=== PATIENT | female | born 1960 | race Caucasian/White ===

== ENCOUNTER → 2018-03-07 | Day surgery (SDC) | payer OTHER ==
[2018-03-05 16:54] LABS: BASOPHILS # (AUTO) 0.1 (0.0-0.1); BASOPHILS % 0.8 % (0.0-1.0); EOSINOPHILS # (AUTO) 0.3 (0.0-0.4); EOSINOPHILS % 4.3 % (0.0-6.0); HEMATOCRIT 44.9 % (34.2-44.1); HEMOGLOBIN 15.5 g/dL (12.0-16.0); LYMPHOCYTES # (AUTO) 1.5 (1.0-3.2); MEAN CORPUSCULAR HEMOGLOBIN 32.8 pg (28-32); MEAN CORPUSCULAR HGB CONC 34.5 g/dL (31-35); MEAN CORPUSCULAR VOLUME 94.9 fL (81-99); MONOCYTES # (AUTO) 0.8 (0.2-0.8); MONOCYTES % 12.6 % (4.4-11.3); NEUTROPHILS # (AUTO) 3.4 (2.1-6.9); NEUTROPHILS % 57.1 % (38.7-80.0); PLATELET COUNT 240 x10e3/uL (140-360); RED BLOOD COUNT 4.73 x10e6/uL (3.6-5.1); RED CELL DISTRIBUTION WIDTH 11.9 % (11.7-14.4)
[~2018-03-07] MED LIST: ASPIR 8181 MG PO; AZITHROMYCIN250 MG PO; COREG3.125 MG PO; EPINEPHRINE HCL INJ 1 MG/ML AMP ONE; ETHAMBUTOL HCL400 MG PO; FENTANYL CITRATE/PF 100MCG/2 ML INJ ONE; GLYCOPYRROLATE INJ 1MG/ 5 ML SYR ONE; LIDOCAINE HCL 2% 30 ML TUBE ONE; LIDOCAINE HCL 2% LOCAL INJ 5 ML SDV VIAL INJ ONE; LIDOCAINE HCL 4% 50 ML BTL ONE; MIDAZOLAM HCL 2 MG/2 ML VIAL ONE; OXYMETAZOLINE HCL 0.05% NAS 1 SPRAY BTL ONE; PHENYLEPHRINE HCL 1% 10 MG/ML VIAL ONE; PROAIR HFA INH8.5 GM INH; PROPOFOL IV EMULSION 10 MG/ML 20 ML VIAL ONE; RIFAMPIN300 MG PO; SEVOFLURANE INHAL SOLN 250 ML PEN BTL ONE
--- OUTSIDE RECORDS SUMMARY | 2018-03-07 11:18 | XMS REPORT | Clinical Summary ---
Author Author [facility] Address Unknown Phone Unavailable Care Team Providers Care Charity Fundraiser Name Role Phone Asked, No Pcp PCP Unavailable Allergies No Known Allergies Current Medications No known medications Active Problems Problem Noted Date VT (ventricular tachycardia) (HCC) 04/17/2016 PVC (pulmonary venous congestion) 12/13/2015 Encounters Date Type Specialty Care Team Description 09/10/2017 [facility] Procedural Cardiology Jacinta Smith MD Severe mitral Encounter regurgitation 09/02/2017 Transcribe Procedural Cardiology Jacinta Smith MD Severe mitral Orders regurgitation (Primary Dx) after 03/06/2017 Family History Medical History Relation Name Comments Heart disease Father Alzheimer's disease Mother Relation Name Status Comments Father Mother Social History Tobacco Use Types Packs/Day Years Used Date Never Smoker Alcohol Use Drinks/Week oz/Week Comments Yes rare Sex Assigned at Date Recorded Not on file Last Filed Vital Signs Vital Sign Reading Time Taken Blood Pressure 108/59 09/10/2017 3:00 PM CDT Pulse 78 09/10/2017 2:55 PM CDT Temperature - - Respiratory Rate 18 09/10/2017 2:55 PM CDT Oxygen Saturation 100% 09/10/2017 2:55 PM CDT Inhaled Oxygen - - Concentration Weight - - Height - - Body Mass Index - - Plan of Treatment Health Maintenance Due Date Last Done Comments CERVICAL CANCER SCREENING 1979 BREAST CANCER SCREENING 2008 COLON CANCER SCREENING 2008 SHINGRIX VACCINE (#1) 2008 INFLUENZA VACCINE 12/04/2017 Procedures Procedure Name Priority Date/Time Associated Diagnosis Comments ECHOCARDIOGRAM Routine 09/10/2017 Severe mitral Results for this TRANSESOPHAGEAL 3:53 PM CDT regurgitation procedure are in the results section. after 03/06/2017 Results * Echocardiogram transesophageal (09/10/2017 3:53 PM) Narrative Performed At [facility] Transesophageal Echo Report [id number], [place] [address] Pat.Name:Jaquelin ZURITA.ID:[id number] .Date: 09/10/2017Refer.:JACINTA SMITH MD Exam Time: 2:06:00 PMStudy Type:SHERRON Height:66inWeight:134lb BSA: 1.69 m2 DOBAge:1960,57Y Sex: FEMALEBP:150/101 HR:88 bpmSonogrphr: Tomas Becerra MD Pat. Stat.:OutpatientStudy Status:Final Echo Event ID:[id number] Order ID:[id number] Procedures:Transesophageal Echo with Colorflow Doppler Race:C SUMMARY: LV EF is normal. Estimated EF is 60-64%. RV systolic function is normal. 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 The degree of MV prolapse is moderate. Mild central mitral regurgitation occurring in mid to late systole. FINDINGS: SHERRON:The attending pre sales systems engineer performed the SHERRON procedure and waspresent for the entire duration. The patient was counseledand an informed consent was obtained. Topical and intravenousanesthesia was administered. The esophagus was intubatedwithout difficulty. The probe was passed to the gastricfundus and all standard echocardiographic views wereobtained. The patient tolerated the procedure well. LV: LV size is enlarged. LV EF is normal. Overall wall motion is normal.Estimated EF is 60-64%. RV: RV size is normal. RV systolic function is normal. LA: LA volume is enlarged. No thrombus or mass is visualized in theLA or LA appendage. RA: RA size is normal. AO: Aortic root diameter is normal in size. No significant atheroscleroticchanges seen in the aortic arch and descendingaorta. BELINDA: No pericardial effusion. AV: No structural AV abnormalities noted. Mild aortic regurgitation. MV: Prolapsing and myxomatous degeneration of both mitral valve leafletsconsistent with Hammond's disease vs. fibroelastic deficiency.The degree of MV prolapse is moderate. Mild centralmitral regurgitation occurring in mid to late systole. PV: No structural PV abnormalities noted. A trace of pulmonic regurgitation. TV: No structural TV abnormalities noted. A trace of tricuspid regurgitation SHERRON: Anesthesia: Moderate SedationASA Class: 2 Physician: Rojas Fuentes MD Loss Prevention Detective: Tomas Becerra MD Pre TEEBP HR Post SHERRON BP HR 150/101 88 129/67 82 Meds:Viscous xylocaine, Cetacaine spray to oropharynx, Versed 2 mg IV, Fentanyl 50 mcg IV Complications: None Condition: Stable Signed 09/11/2017 09:13 AM Rojas Fuentes MD Procedure Note Interface, Radiology Results In - 09/11/2017 9:14 AM CDT Transesophageal Echo Report [id number], [place], [place] [address] Pat.Name: CRISTOPHER ZURITA Pat.ID: [id number] .Date: 09/10/2017 Refer.MD: JACINTA SMITH MD Exam Time: 2:06:00 PM Study Type:SHERRON Height: 66in Weight: 134lb BSA: 1.69 m2 Age: 1 1960,57Y Sex: FEMALE BP: 150/101 HR: 88 bpm Sonogrphr: Tomas Becerra MD Pat. Stat.:Outpatient Study Status:Final Echo Event ID:[id number] Order ID: [id number] Procedures:Transesophageal Echo with Colorflow Doppler Race: C SUMMARY: LV EF is normal. Estimated EF is 60-64%. RV systolic function is normal. 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 The degree of MV prolapse is moderate. Mild central mitral regurgitation occurring in mid to late systole. FINDINGS: SHERRON: The attending pre sales systems engineer performed the SHERRON procedure and was present for the entire duration. The patient was counseled and an informed consent was obtained. Topical and intravenous anesthesia was administered. The esophagus was intubated without difficulty. The probe was passed to the gastric fundus and all standard echocardiographic views were obtained. The patient tolerated the procedure well. LV: LV size is enlarged. LV EF is normal. Overall wall motion is normal. Estimated EF is 60-64%. RV: RV size is normal. RV systolic function is normal. LA: LA volume is enlarged. No thrombus or mass is visualized in the LA or LA appendage. RA: RA size is normal. AO: Aortic root diameter is normal in size. No significant atherosclerotic changes seen in the aortic arch and descending aorta. BELINDA: No pericardial effusion. AV: No structural AV abnormalities noted. Mild aortic regurgitation. 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 The degree of MV prolapse is moderate. Mild central mitral regurgitation occurring in mid to late systole. PV: No structural PV abnormalities noted. A trace of pulmonic regurgitation. TV: No structural TV abnormalities noted. A trace of tricuspid regurgitation SHERRON: Anesthesia: Moderate Sedation ASA Class: 2 Physician: Rojas Fuentes MD Loss Prevention Detective: Tomas Becerra MD Pre SHERRON BP HR Post SHERRON BP HR 150/101 88 129/67 82 Meds: Viscous xylocaine, Cetacaine spray to oropharynx, Versed 2 mg IV, Fentanyl 50 mcg IV Complications: None Condition: Stable Signed 09/11/2017 09:13 AM Rojas Fuentes MD Performing Organization Address [facility] Phone Number [facility] [phone] [place] [address] after 03/06/2017 Insurance Payer Benefit Subscriber ID Type Phone Address Plan / Group xxxxxxxxx FOR LIFE xxxxxxxxx [facility] [place] [address]
--- NOTE | 2018-03-07 14:14 | Diagnostic Imaging Report ---
EXAMINATION: CHEST SINGLE (PORTABLE) INDICATION: Status post bronchoscopy COMPARISON: None FINDINGS: TUBES and LINES: None. LUNGS: Hyperinflated lungs. Mild patchy opacity in the right lateral mid lung zone and left lower lung. No lobar consolidation. No evidence of pulmonary edema. PLEURA: No pleural effusion or pneumothorax. Biapical pleural parenchymal opacity. HEART AND MEDIASTINUM: The cardiomediastinal silhouette is unremarkable. BONES AND SOFT TISSUES: No acute osseous lesion. Soft tissues are unremarkable. UPPER ABDOMEN: No free air under the diaphragm. IMPRESSION: Emphysematous changes of the lungs with patchy opacities in the right mid and left lower lung zones. Findings could represent atelectasis or aspiration, however follow-up chest radiograph is recommended in 6-8 weeks to assess for resolution. Signed by: Dr. Rosie Brooks MD on 03/07/2018 2:11 PM
--- NOTE | 2018-03-07 14:36 | Operative Report ---
DATE OF PROCEDURE: March 07, 2018 This is a patient of kamari, Dr. Karen Helms, and Dr. Stafford. 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 She has had gradual improvement on chest x-ray. Infiltrates have persisted as has her cough. She was referred for a 2nd opinion to Dr. Stafford, who recommended bronchoscopy and lavage. This had been refused in the past; but on this occasion, the patient consented. The procedure was performed under general anesthetic by Dr. Anguiano, and LMA was used. Vocal cord movement could not be assessed because of the patient's anesthesia level. Moderately severe tracheobronchitis. Moderate amount of white, thick secretions in the lingula and middle lobe were identified, and lavage was performed with 120 mL of normal saline. The patient tolerated the procedure well. In addition, washings were obtained from the lingula. Chest x-ray is pending. COPY DR NESHA STAFFORD Job#: [id number] JAIRO
[2018-03-07 14:45] VITALS: BP 107/68
[2018-03-07 15:03] LABS: BODY FLUID APPEARANCE CLOUDY; BODY FLUID TYPE PLEURAL
[2018-03-07 15:04] LABS: RBC,BODY FLUID 124 cells/uL; WBC,BODY FLUID 757 cells/uL
[2018-03-07 15:13] LABS: LYMPHOCYTES,BODY FLUID 2 %; MONO/MACROPHG,BODY FLUID 1 %; NEUTROPHILS,BODY FLUID 97 %
--- NOTE | 2018-03-12 11:23 | Pre Op History & Physical ---
A patient of Dr. Karen Helms and Dr. Allison. A charming but unfortunate 57-year-old woman with a remote history of Mycobacterium kansasii infection diagnosed in 2012. She had sputum which was positive with the mycobacterium. She has had finger clubbing. She at that time refused bronchoscopy which had been scheduled. Subsequent sputum was positive for Mycobacterium kansasii. She was treated from 2012 to 2013 with azithromycin, ethambutol and rifampin 3 times a week for bronchiectatic . She had fever and aches in 2012. She was treated with ethambutol, INH, pyridoxine and rifampin in December of 2012. She received an 18-month course and was treated daily. Therapy was stopped about July of 2014. She then had recurrent symptoms and evidence of bronchiectasis. Then in September of 2016 treatment was begun for bronchiectatic mycobacterium avium and was started on azithromycin 500 mg Saturday/Saturday/Saturday, ethambutol and rifampin. She gradually improved, but in February of this year she began to cough. CT scan revealed diffuse reticular nodular opacity with decrease in size of the nodule with evidence of bronchiectasis in the right middle lobe and lingula with some improvement particularly about the infiltrate in the left lower lobe. ALLERGIES: NO KNOWN ALLERGIES. MEDICATION: Medications have included Christel, aspirin, azithromycin, Coreg, ethambutol, rifampin. FAMILY HISTORY: Positive for cancer in son. SOCIAL HISTORY: Worked in a [employer] union. Nonsmoker. PAST SURGICAL HISTORY: She has had appendectomy in 1999. PAST MEDICAL HISTORY: She has had history of atrial arrhythmias with radiofrequency ablation. PHYSICAL EXAMINATION GENERAL: A well-developed white female in no acute distress. VITAL SIGNS: Afebrile, 131 pounds, blood pressure 99/62, O2 saturation 96, body mass index 20. HEAD: Normocephalic, atraumatic. EYES: Extraocular movements intact. LUNGS: Clear. HEART: Regular rhythm. ABDOMEN: Nontender. EXTREMITIES: There is clubbing. IMPRESSION: One of bronchiectatic Mycobacterium avium infection. Plan is to proceed with bronchoscopy for bacteriologic studies as recommended by infectious networks computer consultant and to obtain sensitive. Culture on January 27, 2018, for mycobacterium was negative as was the culture in December of 2017. Culture in May of 2016 was positive for Mycobacterium avium, and she is admitted for outpatient bronchoscopy and lavage. Job#: [id number] EV
== END | disposition home or self-care (01) ==
LOC: ENDO 11:16
PROVIDERS: ATTEND Internal Medicine Pulmonary Disease
DX: A31.8 Other mycobacterial infections (principal); J40 Bronchitis, not specified as acute or chronic; J44.9 Chronic obstructive pulmonary disease, unspecified; I34.1 Nonrheumatic mitral (valve) prolapse; I10 Essential (primary) hypertension; Z79.82 Long term (current) use of aspirin; Z01.810 Encounter for preprocedural cardiovascular examination; Z01.812 Encounter for preprocedural laboratory examination
CPT/HCPCS: 31624; 36415 ×2; 71045; 85025; 87102; 87116; 87186; 87205; 87206 ×2; 87335; 88112; 88305; 89051; 93005; J2001; J2250; J2370; J2704; J3490; 87149; 87190; J0171